=== PATIENT | male | born 1985 | race Caucasian/White ===

== ENCOUNTER 2021-06-04 06:18 | Inpatient (IN) | payer MEDICARE, OTHER ==
[~2021-06-04] VITALS: Ht 162.6 cm; Wt 61.2 kg
[2021-06-04 07:24] LABS: HEMOGLOBIN 13.5 gm/dl (14.0-17.5); RED BLOOD COUNT 4.14 M/UL (4.20-5.50); WHITE BLOOD COUNT 18.7 K/UL (4.5-11.0)
[2021-06-04 07:51] LABS: BUN/CREATININE RATIO 14 (0-10)
[2021-06-04] MEDS ORDERED: GABAPENTIN800 MG PO (12:15)
[2021-06-04] MEDS ORDERED: TYLENOL W/CODEIN1 E2 PO (12:16)
[2021-06-04] MEDS ORDERED: ALLERGY RELIEF1 EAC3 PO (12:17)
[2021-06-05 04:39] LABS: RED BLOOD COUNT 4.3 M/UL (4.20-5.50)
[2021-06-05 04:52] LABS: WHITE BLOOD COUNT 30.7 K/UL (4.5-11.0)
[2021-06-05 05:18] LABS: BUN/CREATININE RATIO 21 (0-10)
[2021-06-06 05:02] LABS: WHITE BLOOD COUNT 22.7 K/UL (4.5-11.0)
[2021-06-06 05:21] LABS: BUN/CREATININE RATIO 20 (0-10)
--- NOTE | 2021-06-06 16:33 | NUR ---
TOOK OFF PTS DRESSING AND FINGER LOOKS MORE SWOLLEN AND WHITISH. DR DAUGHERTY NOTIFIED AND STATES WILL COME AROUND 6PM TO LOOK AT IT
[2021-06-07 05:28] LABS: HEMOGLOBIN 14.1 gm/dl (14.0-17.5); RED BLOOD COUNT 4.33 M/UL (4.20-5.50)
[2021-06-07 05:53] LABS: BUN/CREATININE RATIO 22 (0-10)
--- NOTE | 2021-06-07 17:59 | NUR ---
DRESSING CHANGED ON FINGER THIS EVENING APPROX 4PM
[2021-06-08 04:46] LABS: HEMOGLOBIN 15.2 gm/dl (14.0-17.5); RED BLOOD COUNT 4.63 M/UL (4.20-5.50); WHITE BLOOD COUNT 10.9 K/UL (4.5-11.0)
[2021-06-08 05:14] LABS: BUN/CREATININE RATIO 27 (0-10)
[2021-06-08] MEDS ORDERED: PERCOCET 5-3251 EACH PO (12:26)
[2021-06-09 03:00] LABS: HEMOGLOBIN 14.6 gm/dl (14.0-17.5); RED BLOOD COUNT 4.72 M/UL (4.20-5.50)
[2021-06-09 03:01] LABS: WHITE BLOOD COUNT 26.8 K/UL (4.5-11.0)
[2021-06-09 03:40] LABS: BUN/CREATININE RATIO 25 (0-10)
[2021-06-09] MEDS ORDERED: GABAPENTIN800 MG PO (13:57)
[2021-06-09] MEDS ORDERED: NICOTINE PATCH1 EAC5 TD (13:57)
[2021-06-10] MEDS ORDERED: PERCOCET 5-3251 EACH PO (10:30)
--- NOTE | 2021-06-10 19:17 | NUR ---
Late Entry: 06/10/21 @ 1000) 20g x 10cm midline placed in the left basilic vein using ultrasound guidance. Aspirates and flushes well. No complications.
== END 2021-06-10 12:37 | disposition swing bed (61) | DRG 513 ==
LOC: ER1 06:18 → M/S 08:48 → CDU 08:48 → M/S 15:47
PROVIDERS: Emergency Medicine; Internal Medicine; Orthopaedic Surgery; Physician Assistant; Physician Assistant Medical; ADMIT Internal Medicine
PROC: 0LB70ZZ Excision of Right Hand Tendon, Open Approach (ICD-10-PCS; principal; 2021-06-04 14:13)
PROC: 0LB70ZZ Excision of Right Hand Tendon, Open Approach (ICD-10-PCS; 2021-06-08)
DX: M65.141 Other infective (teno)synovitis, right hand (principal); L02.511 Cutaneous abscess of right hand; L03.011 Cellulitis of right finger; B95.62 Methicillin resistant Staphylococcus aureus infection as the cause of diseases classified elsewhere; F17.210 Nicotine dependence, cigarettes, uncomplicated; Z90.49 Acquired absence of other specified parts of digestive tract; D72.829 Elevated white blood cell count, unspecified
CPT/HCPCS: 36415; 73110; 73130; 80048; 80053; 80202; 80307; 83735; 85025; 85027; 85652; 86140; 87040; 87070; 87077; 87186; 87205; 96374; 96375; 97110; 97161; 97165; 99284; C1751; J0692; J1100; J1650; J2001; J2250; J2270; J2405; J2704; J2795; J3010; J3370; J7040; J7070; J7120; U0002